=== PATIENT | female | born 1970 | race Caucasian/White ===

== ENCOUNTER 2018-05-01 10:24 | Outpatient (CLI) | payer BC | END 2018-05-01 10:25 | disposition home or self-care (01) | LOC: DTY/OP 10:24 | PROVIDERS: ATTEND Surgery | DX: E66.01 Morbid (severe) obesity due to excess calories (principal) | CPT/HCPCS: 97802 ==

== ENCOUNTER 2018-06-02 15:53 | Outpatient (CLI) | payer BC ==
[2018-06-02 17:00] LABS: #Basophils 0.1 thou/uL (0.0-0.2); #Eosinphils 0.2 thou/uL (0.0-0.7); #Lymphocytes 3.2 thou/uL (1.20-3.40); #Monocytes 0.5 thou/uL (0.11-0.59); #Neutrophils 7.5 thou/uL (1.40-6.50); %Basophils 0.4 % (0.0-1.0); %Eosinophils 1.6 % (0.0-10.0); %Lymphocytes 28.4 % (21.0-51.0); %Monocytes 4.4 % (0.0-10.0); %Neutrophils 65.2 % (42.0-75.0); Hemoglobin 12.9 g/dL (12.0-16.0); Mean Corpuscular HGB CONC 32.7 g/dL (32.0-36.0); Mean Corpuscular Hemoglobin 28.3 pg (27.0-31.0); Mean Corpuscular Volume 86.5 fL (78.0-98.0); Mean Platelet Volume 8.9 fL (7.4-10.4); Platelet Count 288 thou/uL (130-400); RBC Distribution Width 14.3 % (11.5-14.5); Red Blood Cell (RBC) Count 4.56 mill/uL (4.20-5.40); White Blood Cell (WBC) Count 11.4 thou/uL (4.8-10.8)
[2018-06-02 17:11] LABS: Hemoglobin A1c 4.9 % (4.0-6.0)
[2018-06-02 17:22] LABS: ALT (SGPT) 23 U/L (8-55); AST (SGOT) 13 U/L (5-34); Albumin 4.3 g/dL (3.5-5.0); Alkaline Phosphatase 74 U/L (40-150); Anion Gap 10 mmol/L (10-20); BUN (Urea Nitrogen) 10 mg/dL (7.0-18.7); Bilirubin, Direct 0.1 mg/dL (0.1-0.3); Bilirubin, Total 0.2 mg/dL (0.2-1.2); Calc. Creatinine Clearance 0 mL/min (70-130); Calcium 9.6 mg/dL (7.8-10.44); Carbon Dioxide 29 mmol/L (22-29); Chloride 102 mmol/L (98-107); Estimated GFR-MDRD 78; Globulin 2.5 g/dL (2.4-3.5); Glucose 78 mg/dL (70-105); Potassium 4.4 mmol/L (3.5-5.1); Protein, Total 6.8 g/dL (6.0-8.3); Sodium 137 mmol/L (136-145)
--- NOTE | 2018-06-02 17:30 | RAD ---
2 VIEW CHEST: Date: 06/02/18 INDICATION: Preoperative evaluation. FINDINGS: Lungs are clear. No effusion or pneumothorax. Cardiac silhouette is normal in size. IMPRESSION: No focal consolidation. POS: [facility]
--- NOTE | 2018-06-05 16:34 | EKG ---
Test Reason : Blood Pressure : / mmHG Vent. Rate : 087 BPM Atrial Rate : 087 BPM P-R Int : 128 ms QRS Dur : 078 ms QT Int : 370 ms P-R-T Axes : 051 059 063 degrees QTc Int : 445 ms Normal sinus rhythm Low voltage QRS Borderline ECG No previous ECGs available Confirmed by DR. Junito REYNOLDS ([id number]) on 06/05/2018 4:33:31 PM Referred By: TIMA Confirmed By:DR. Junito REYNOLDS
== END 2018-06-02 15:54 | disposition home or self-care (01) ==
LOC: LABBT 15:53
PROVIDERS: ATTEND Surgery
DX: Z01.818 Encounter for other preprocedural examination (principal); E66.01 Morbid (severe) obesity due to excess calories
CPT/HCPCS: 71046; 80053; 80076; 83036; 85025; 93005; 93010

== ENCOUNTER 2018-06-02 16:15 | Inpatient (IN) | payer BC ==
[2018-06-02 16:08] VITALS: BMI 43.8
[2018-06-09] MEDS ORDERED: Heparin 5,000 UNITS/ML VIAL ONE (09:49)
[2018-06-09] MEDS ORDERED: Bupivacaine/Epinephrine 0.25% 30 ML VIAL ONE (10:42)
[2018-06-09] MEDS ORDERED: Fentanyl 100 MCG/2 ML VIAL ONE (10:53)
[2018-06-09] MEDS ORDERED: Midazolam HCl 2 mg/2 ml Vial ONE ×2 (10:53)
[2018-06-09] MEDS ORDERED: Lidocaine 1% PF 5 ML VIAL ONE (11:56)
[2018-06-09] MEDS ORDERED: PROPOFOL 200 MG/20 ML VIAL ONE (11:56)
[2018-06-09] MEDS ORDERED: Dexamethasone 20 MG/5 ML VIAL ONE (11:56)
[2018-06-09] MEDS ORDERED: Rocuronium Bromide 10 MG/ML (10ML VIAL) ONE (11:56)
[2018-06-09] MEDS ORDERED: Ketorolac Tromethamine 30 MG/ML VIAL ONE (11:56)
[2018-06-09] MEDS ORDERED: Glycopyrrolate 0.2 MG/ML 5 ML SYRINGE ONE (11:56)
[2018-06-09] MEDS ORDERED: Ondansetron PF 4 MG/2 ML Vial ONE (11:56)
[2018-06-09] MEDS ORDERED: Naloxone HCl 0.4 mg/ml Vial IV PRN (12:06)
[2018-06-09] MEDS ORDERED: diphenhydrAMINE 50 MG/ML VIAL IVP PRN ×2 (12:06→15:24)
[2018-06-09] MEDS ORDERED: Promethazine HCl 25 MG/ML VIAL IM PRN ×3 (12:06→15:24)
[2018-06-09] MEDS ORDERED: Zolpidem Tartrate 5 MG TAB PO PRN (12:06)
[2018-06-09] MEDS ORDERED: diphenhydrAMINE 25 MG CAP PO PRN (12:06)
[2018-06-09] MEDS ORDERED: Ondansetron PF 4 MG/2 ML Vial IVP PRN ×2 (12:06→15:24)
[2018-06-09] MEDS ORDERED: Ondansetron HCl/PF 4 MG/2 ML Vial IVP PRN (12:06)
[2018-06-09] MEDS ORDERED: diphenhydrAMINE 50 MG/ML VIAL IM PRN (12:06)
[2018-06-09] MEDS ORDERED: fentaNYL Citrate/PF 2,000 MCG in Sodium Chloride 0.9% 60 ML IV PRN (12:06)
[2018-06-09] MEDS ORDERED: Promethazine HCl 25 MG/ML VIAL SLOW IVP PRN (12:06)
[2018-06-09] MEDS ORDERED: Communication Order-Pharmacy FS SCH (12:15)
--- NOTE | 2018-06-09 12:20 | OP ---
DATE OF PROCEDURE: 06/09/2018 PREOPERATIVE DIAGNOSIS: Morbid obesity with the body mass index of 43. POSTOPERATIVE DIAGNOSIS: Morbid obesity with the body mass index of 43. PROCEDURES PERFORMED: 1. Laparoscopic sleeve gastrectomy with [place] staple line reinforcements and 38-[place] bougie. 2. Esophagogastroduodenoscopy. ANESTHESIA: General. ESTIMATED BLOOD LOSS: 50 mL. COMPLICATIONS: None. SPECIMEN: Stomach. FINDINGS: Normal postoperative EGD. DESCRIPTION OF PROCEDURE: The patient was taken to the operating room and laid supine on the table. After general anesthetic was obtained, the arms and legs were double strapped to bariatric table. OG tube was used to decompress the stomach. The abdomen was prepped and draped in a sterile fashion. Left subcostal 5 mm Optiview trocar was placed in the usual fashion without injury and high-flow pneumoperitoneum was obtained. Left and right abdominal 12-mm ports as well as a right subcostal 5 mm port were placed in direct visualization. A 5 mm incisions made at the xiphoid and Regulo was used to raise the liver off the GE junction. Short gastrics were taken down from a distance of 6 cm proximal to the pylorus, all the way up to the left kylie angle of His and fundus of the stomach. The fundus of the stomach and the left kylie of diaphragm were completely dissected. Short gastrics taken down to a distance of 6 cm proximal to the pylorus. OG tube was removed and 38 bougie was brought in and its tip left in the antrum of the stomach. Multiple loads of the [place] stapling device was used to perform the sleeve. The first was fired up at a distance of 6 cm proximal to the pylorus angled up towards the incisura. Multiple loads then fired up along the bougie. Stomach was completely transected at the angle of His. Stomach was removed from the left abdominal incision. This fascial defect was closed using GraNee needle and Vicryl tie. All port sites were infiltrated using local anesthetic. There was no bleeding on the staple line. Bougie was removed and the EGD scope was passed through esophagus, stomach to the level of duodenum without obstruction. There was no stricture at the incisura. There was no evidence of injury to the GE junction or stenosis. EGD scope was used to decompress the stomach, it was pulled and removed. Regulo retractor was removed under direct visualization without bleeding. All port sites incisions are infiltrated using local anesthetic. All ports were removed under camera visualization and pneumoperitoneum was let down. The Vicryl was close the fascial defect from the fascial defect on the left abdomen. All incisions were irrigated and closed using 4-0 Monocryl and Dermabond. The patient was sent to Recovery in stable condition. All sponge counts, needle counts, and lap counts were correct. Job ID: [id number]
[2018-06-09] MEDS ORDERED: D5 1/2 NS w/20 mEq KCL 1,000 ML ONE (12:26)
[2018-06-09] MEDS ORDERED: Promethazine HCl 25 MG/ML VIAL ONE (12:30)
[2018-06-09] MEDS ORDERED: Hydrocodone-Acetamin 15 ML UDCUP PO PRN (15:24)
[2018-06-09] MEDS ORDERED: Dextrose 5% in Water 1,000 ML IV PRN (15:24)
[2018-06-09] MEDS ORDERED: hydrALAZINE 20 MG/ML VIAL SLOW IVP PRN (15:24)
[2018-06-09] MEDS ORDERED: Dextrose 50% Abboject 50 ML SYRINGE SLOW IVP PRN (15:24)
[2018-06-09] MEDS: D5 1/2 NS w/20 mEq KCL 1,000 ML IV SCH (18:03)
[2018-06-09] MEDS: Acetaminophen 1,000 MG in Premix Bag 1 BAG IVPB SCH (18:06)
[2018-06-09] MEDS ORDERED: Enoxaparin Sodium 40 MG/0.4 ML SYRINGE SC SCH (21:00)
[2018-06-09] MEDS ORDERED: PARoxetine 20 MG TAB PO SCH (21:00)
[2018-06-09] MEDS ORDERED: Aripiprazole 10 MG TAB PO SCH (21:00)
[2018-06-10] MEDS: D5 1/2 NS w/20 mEq KCL 1,000 ML IV SCH ×2 (00:15→10:40)
[2018-06-10] MEDS: Acetaminophen 1,000 MG in Premix Bag 1 BAG IVPB SCH ×2 (00:15→05:05)
[2018-06-10 06:18] LABS: #Lymphocytes 2.1 thou/uL (1.20-3.40); #Monocytes 0.6 thou/uL (0.11-0.59); #Neutrophils 10.3 thou/uL (1.40-6.50); %Basophils 0.2 % (0.0-1.0); %Eosinophils 0.2 % (0.0-10.0); %Lymphocytes 16.3 % (21.0-51.0); %Monocytes 4.8 % (0.0-10.0); %Neutrophils 78.5 % (42.0-75.0); Hemoglobin 12.4 g/dL (12.0-16.0); Mean Corpuscular HGB CONC 32.5 g/dL (32.0-36.0); Mean Corpuscular Hemoglobin 28.5 pg (27.0-31.0); Mean Corpuscular Volume 87.6 fL (78.0-98.0); Mean Platelet Volume 9.2 fL (7.4-10.4); Platelet Count 281 thou/uL (130-400); RBC Distribution Width 14.2 % (11.5-14.5); Red Blood Cell (RBC) Count 4.34 mill/uL (4.20-5.40); White Blood Cell (WBC) Count 13.1 thou/uL (4.8-10.8)
[2018-06-10 06:27] LABS: Anion Gap 10 mmol/L (10-20); BUN (Urea Nitrogen) 5 mg/dL (7.0-18.7); Calc. Creatinine Clearance 147 mL/min (70-130); Calcium 9.2 mg/dL (7.8-10.44); Carbon Dioxide 28 mmol/L (22-29); Chloride 102 mmol/L (98-107); Estimated GFR-MDRD 86; Glucose 119 mg/dL (70-105); Potassium 4.8 mmol/L (3.5-5.1); Sodium 135 mmol/L (136-145)
[2018-06-10 08:12] VITALS: BP 142/81; TEMP 97.9
[2018-06-10] MEDS ORDERED: Hydrocodone-Acetamin 15 ML UDCUP PO PRN (08:20)
[2018-06-10] MEDS ORDERED: Pantoprazole 40 MG VIAL IVP SCH (09:00)
--- NOTE | 2018-06-10 10:56 | DIS ---
DATE OF ADMISSION: 06/09/2018 DATE OF DISCHARGE: 06/10/2018 ADMIT DIAGNOSIS: Morbid obesity. DISCHARGE DIAGNOSIS: Morbid obesity. PROCEDURE PERFORMED: Laparoscopic sleeve gastrectomy by Dr. Collins without complication. CONDITION ON DISCHARGE: Improved. STAFF: Addison Collins MD HOSPITAL COURSE: On postop day 1, the patient is doing quite well. She is ambulatory. She is tolerating the clear liquids. Her wounds are all healing well. She is afebrile and her vital signs are stable. She is discharged to home and she will follow up with me in 2 weeks. She already had prescriptions sent over to her Pharmacy; Lortab, elixir, Zofran, and pantoprazole. Job ID: [id number]
== END 2018-06-10 10:10 | disposition home or self-care (01) | DRG 621 ==
LOC: SURG A 06-09 09:13
PROVIDERS: ADMIT Surgery; ATTEND Surgery
PROC: 0DB64Z3 Excision of Stomach, Percutaneous Endoscopic Approach, Vertical (ICD-10-PCS; principal; 2018-06-09)
PROC: 0DJ08ZZ Inspection of Upper Intestinal Tract, Via Natural or Artificial Opening Endoscopic (ICD-10-PCS; 2018-06-09)
DX: E66.01 Morbid (severe) obesity due to excess calories (principal); Z68.41 Body mass index [BMI] 40.0-44.9, adult
CPT/HCPCS: 36415; 80048; 85025; 88307; 88312; 90471; 90686; 90732; 94760; C9113; G0008; G0009; J0131; J1100; J1644; J1650; J1885; J2001; J2250; J2405; J2550; J2704; J3010; J7050